=== PATIENT | male | born 1940 | race Caucasian/White ===

== ENCOUNTER 2023-11-20 06:12 | Day surgery (SDC) | payer MEDICARE, BC, SELFPAY ==
--- NOTE | 2023-10-16 11:52 | CM ---
Addendum entered by Victoria Obrien 11/13/23 11:34:
Spoke again with patient. He has obtained a rolling walker and will bring this to the hospital on the day of surgery.
Original Note:
Patient is scheduled for an elective L TKR on 11/20/23- he is a same day patient. Spoke with patient prior to surgery. Introduced role of Orthopedic Navigator. Patient reports that he lives alone in a one story home. There is one step or a ramp to
enter. He currently functions independently and occasionally uses a cane. He has no other DME. He has never had VN services. PCP is Roxanna Knight.
Discussed orthopedic program and post surgical plans. Reviewed that he will have VN services initially (medicare.gov website and ratings reviewed) and will then start outpatient PT. Patient selects [facility] (face sheet faxed to [facility] to facilitate
confirmation of benefits) for his home care needs and will go to [facility] for outpatient PT.
Patient is in agreement with plan and states that his son, Dick, will be home with him.
Patient will complete online education.
Plan: Orthopedic Navigator will remain available to assist with the care of patient and will reassess discharge needs after surgery.
[2023-10-31 10:47] VITALS: BMI 30.3
[2023-10-31 10:51] LABS: Hematocrit 38.8 % (39.0-52.0); Hemoglobin 13.1 g/dL (13.0-18.0); Mean Corp Hgb Conc. 33.8 g/dL (33.0-37.0); Mean Corpuscular Volume 88.8 fL (80.0-94.0); Mean Platelet Volume 10.1 fL (7.4-10.4); Platelet Count 306 10^3/uL (130-400); Red Blood Cell Count 4.37 10^6/uL (4.70-6.10); Red Cell Dist. Width 13.3 % (11.5-14.5); White Blood Cell Count 7.9 10^3/uL (4.8-10.8)
[2023-10-31 11:17] LABS: ALT (SGPT) 23 U/L (0-50); AST (SGOT) 23 U/L (17-59); Albumin 3.6 g/dl (3.5-5.0); Alkaline Phosphatase 82 U/L (38-126); Blood Urea Nitrogen 24 mg/dl (9-20); Calcium 9.3 mg/dl (8.4-10.2); Carbon Dioxide 28 mmol/L (22-30); Chloride 97 mmol/L (98-107); Estimated Creatinine Clearance 55 ml/min; Glucose 189 mg/dl (70-99); Potassium 3.9 mmol/L (3.5-5.1); Sodium 136 mmol/L (135-145); Total Bilirubin 0.6 mg/dl (0.2-1.3); Total Protein 5.6 g/dl (6.3-8.2); eGFR > 60.00
[2023-10-31 12:13] LABS: Glycohemoglobin (HgbA1c) 6.5 % (4.0-5.6)
[2023-10-31 15:55] VITALS: BMI 30.3
[2023-11-20] VITALS (15 sets, daily range): BP systolic 102–174; BP diastolic 52–87; BMI 30.3
[2023-11-20] MEDS: CELEBREX 200 MG PO (07:46)
[2023-11-20] MEDS: TYLENOL 650 MG PO (07:46)
[2023-11-20 08:08] LABS: Glucose - Point of Care 116 mg/dl (70-99)
[2023-11-20] MEDS: NORMOSOL-R 1000 IV (08:09)
[2023-11-20 10:02] LABS: Glucose - Point of Care 121 mg/dl (70-99)
--- NOTE | 2023-11-20 11:30 | CM ---
Patient had planned L TKR today. Met with patient and his son at bedside to review discharge plans. Patient will be returning home today with services through VN. On Saturday, 11/24, patient will start outpatient PT at [facility]. Reviewed MD follow
up in two weeks and patient is aware of need to schedule appointment.
Patient has his rolling walker here with him.
PT and VN were kept updated as to progress and discharge plans.
[2023-11-20 11:55] LABS: Glucose - Point of Care 120 mg/dl (70-99)
--- NOTE | 2023-11-20 12:24 | PTCARENOTE ---
OOB and dressed. Awaiting patient to void.
[2023-11-20] MEDS: ANCEF 5 IV (12:36)
[2023-11-20] MEDS: FLOMAX 0.400000000000000022 MG PO (13:37)
--- NOTE | 2023-11-20 14:26 | PTCARENOTE ---
Patient has been trying to void since 1300. Patient is unable to void. Patient bladder scanned for 351 ml of urine. Patient given Flomax ordered by Erika Hernandez. Patient still unable to void at 1427. Bladder scan done at 1420 and was 374 ml.
Erika Hernandez notified via tiger text. Will monitor patient.
--- NOTE | 2023-11-20 14:58 | PTCARENOTE ---
Report given to Kareen Ray RN.
[2023-11-20] MEDS: ROXICODONE 5 MG PO (15:04)
== END 2023-11-20 16:30 | disposition home health service (06) ==
LOC: SDS 06:12
PROVIDERS: ATTENDING PHYSICIAN Orthopaedic Surgery; FAMILY PHYSICIAN Family Medicine; OTHER PHYSICIAN Physician Assistant
DX: M17.12 Unilateral primary osteoarthritis, left knee (principal)
CPT/HCPCS: 27447; 36415; 73560; 80053; 82962; 83036; 85027; 87070; 93005; 97162; C1713; C1776

== ENCOUNTER 2023-11-21 03:02 | Emergency (ER) | payer MEDICARE, BC, SELFPAY ==
[2023-11-21 03:04] VITALS: BP 118/77
[2023-11-21 03:13] VITALS: BP 142/107
--- NOTE | 2023-11-21 05:01 | ED.GENMED ---
History of Present Illness
General
Chief Complaint: Male Genito-Urinary Symptoms
Source: patient
Exam Limitations: none
Time Seen by Provider: 11/21/23 04:54
Nursing documentation reviewed up to this point in time: agreed with
Travel History
Have you had any contact with someone who has COVID-19?: No
Do you have any symptoms of coronavirus? Fever > 100 degrees, chills, cough, shortness of breath, sore throat, loss of taste or smell, muscle aches, or headache?: No
History of Present Illness
History of Present Illness:
This is an 83-year-old gentleman who has history of BPH, follows annually with Dr. Grossman. He underwent left total knee replacement yesterday and postoperatively was unable to void requiring straight cath procedure prior to discharge around
4:30 PM.
Since returning home he continues to have inability to void with tremendous urge and only able to pass small amounts, dribbling amounts of urine.
No history of similar episodes in the past.
He denies back pain or flank pain, denies fever nor chills. Denies hematuria.
Past History
Past History
ED Past Medical History: HTN, Hypercholesterolemia, NIDDM and Other (diverticulitis)
Social History
Tobacco: Non-smoker
Alcohol: Occasional
Personal:
Living: alone
Employment: Retired
Phy Exam
Physical Exam
Physical Exam:
GENERAL: Alert , appears his stated age, appears mildly uncomfortable. Son is accompanying.
NECK: Supple, nontender, no meningismus, no significant adenopathy.
ENT: oral mucosa is moist. No rhinorrhea.
CARDIAC: Regular rate and rhythm. no murmur.
LUNGS: Clear breath sounds bilaterally, no acute respiratory distress, no wheezes/rales/rhonchi
ABDOMEN: Soft, nondistended, moderate tenderness over palpably moderately distended bladder, no r/g, no cvat. normoactive BS.
NEUROLOGICAL: Alert and oriented x3, no focal neuro deficits. Gait is steady.
SKIN: Warm and dry, normal color, skin intact. No rash.
MUSCULOSKELETAL: No C/C/E. peripheral pulses are full and equal b/l. Left knee surgical dressing is dry and intact.
PSYCH: Normal and appropriate interaction.
Course
Orders/Labs/Results
Orders:
Orders
11/21/23 04:55
Bladder Scan- Treatment ONCE
11/21/23 05:01
York Placement- Treatment ONCE
Reason for insertion: Acute Retention
Lidocaine 2% [Lidocaine Uro-Jet 2%] 1 syringe TOPICAL NOW STA
11/21/23 05:04
Urinalysis Reflex To Culture Urgent
Date Specimen was Collected: 11/21/23
Time Specimen was Collected: 05:05
Vital Signs
Initial and Last Documented VS:
Initial Vital Signs
Temp Pulse Resp BP Pulse Ox
98.7 F 97 17 118/77 94
11/21/23 03:04 11/21/23 03:04 11/21/23 03:04 11/21/23 03:04 11/21/23 03:04
Last Documented Vital Signs
Temp Pulse Resp BP Pulse Ox
98.2 F 93 17 142/107 96
11/21/23 03:13 11/21/23 03:13 11/21/23 03:13 11/21/23 03:13 11/21/23 03:13
MDM/Problems Addressed
Differential Diagnosis Includes:
Patient attempted to void upon arrival to the ED, remains unsuccessful only dribbling small amounts of urine.
Bladder scan shows greater than 550 cc in the bladder.
I suspect postop urinary retention likely related to anesthesia.
Will plan for York catheter insertion and as this is second catheterization we will plan to leave catheter in place and discharged home with leg bag with plan for prompt follow-up with Dr. Grossman for catheter removal.
*Critical Care Note
Total Time (30-74mins, 75-104mins- exclusive of procedures): Not Applicable
Update Note
Update Note:
York catheter inserted by nursing staff without difficulty.
Initial output over 800 cc clear yellow urine.
Will discharge with leg bag in place.
Follow-up with urologist for York catheter removal. Recommend notifying orthopedist as well.
ED Attending Note
-
Portions of this chart may have been created with voice recognition software.� Occasional wrong word or��sound alike� substitutions may have occurred due to the inherent limitations of voice recognition software.
Discharge Plan
Departure
Patient Disposition: Home (Routine Discharge)
Date of Disposition: 11/21/23
Time of Disposition: 05:34
Patient with high blood pressure during this ER visit?: No
Condition: Good
Discharge Problem:
Postoperative urinary retention
Instructions: How to Care for Your York Catheter, Male, Urinary Retention (DC)
Prescriptions:
No Action
atorvastatin 40 mg Tablet
40 mg PO HS
metoprolol succinate 50 mg Tablet Extended Release 24 Hr
50 mg PO DAILY
glipizide 10 mg Tablet
10 mg PO DAILY
finasteride 5 mg Tablet
5 mg PO DAILY
Multivitamin 50 Plus Tablet
1 tab PO DAILY
PreserVision AREDS-2 250-90-40-1 mg Capsule
1 tab PO BID
oxycodone 5 mg tablet
5 - 10 mg PO Q6H PRN (Reason: moderate-severe pain) Qty: 30 0RF
Patient Comments:
new for post op
Rx Instructions:
1 tab for moderate pain, 2 if severe.
Dx total joint
celecoxib [Celebrex] 200 mg capsule
200 mg PO DAILY Qty: 30 0RF
Patient Comments:
new med post op
Rx Instructions:
Take with food.
DO NOT take within 2 hours of Aspirin post-surgery.
ondansetron HCl 4 mg tablet
4 mg PO Q6H PRN (Reason: nausea and vomiting) Qty: 30 0RF
Patient Comments:
new for postop
Rx Instructions:
Can take 1/2 hour prior to Oxycodone if experiencing recurrent nausea.
famotidine [Pepcid] 20 mg tablet
20 mg PO HS Qty: 30 0RF
Patient Comments:
new for post op
Rx Instructions:
Take nightly while on Celebrex to prevent GI upset.
mupirocin 2 % ointment
1 applic intranasal BID Qty: 1 0RF
Patient Comments:
applied this am 11/20/23
doxycycline monohydrate 100 mg capsule
100 mg PO BID Qty: 14 0RF
Patient Comments:
new for post op
Rx Instructions:
Start night of discharge and take twice a day for 1 week post-surgery.
Take with probiotic.
acetaminophen [Acetaminophen Extra Strength] 500 mg tablet
1,000 mg PO Q6H Qty: 60 0RF
Rx Instructions:
DO NOT exceed >4000 mg daily.
docusate sodium [Colace] 100 mg capsule
100 mg PO BID Qty: 30 0RF
senna 8.6 mg capsule
17.2 mg PO BID Qty: 30 0RF
aspirin 325 mg tablet
325 mg PO DAILY Qty: 30 0RF
Rx Instructions:
Take daily x4 weeks for blood clot prevention; then resume Aspirin 81 mg daily.
Saccharomyces boulardii [Florastor] 250 mg capsule
250 mg PO BID Qty: 14 0RF
Rx Instructions:
Over the counter. Take while on antibiotic.
If unavailable, choose a different probiotic.
olmesartan-hydrochlorothiazide 40-25 mg Tablet
1 tab PO DAILY Qty: 0 0RF
Rx Instructions:
HOLD IF systolic blood pressure <130 while on Oxycodone.
Referrals:
Kenny Grossman MD [Active] - Call in 1-3 days for appt
Roxanna Knight, DO [Family Provider] -
Adonis Cano MD [Active] -
Interventions
Interventions:
*General Assessment Last Done: 11/21/23 03:13
*Neglect/Abuse Screening Last Done: 11/21/23 03:13
ED- Fall Risk Assessment Last Done: 11/21/23 03:13
*ED COVID-19 Vaccine History Last Done: 11/21/23 03:13
[2023-11-21] MEDS: LIDOCAINE URO-JET 2% 1 SYRINGE TOPICAL (05:24)
[2023-11-21 05:46] LABS: Urine Albumin Negative (Neg - Trace); Urine Bilirubin Negative (Negative); Urine Character Clear (Clear); Urine Color Yellow; Urine Glucose Negative (Negative); Urine Ketone Trace (Negative); Urine Leukocyte Negative (Negative); Urine Nitrite Negative (Negative); Urine Occult Blood Negative (Negative); Urine Specific Gravity 1.015 (<1.030); Urine Urobilinogen Negative (Neg - 1+)
[2023-11-21 06:26] VITALS: BP 142/90
== END 2023-11-21 06:28 | disposition home or self-care (01) ==
LOC: EMR 03:02
PROVIDERS: EMERGENCY PHYSICIAN Emergency Medicine; FAMILY PHYSICIAN Family Medicine
DX: N40.1 Benign prostatic hyperplasia with lower urinary tract symptoms (principal); I10 Essential (primary) hypertension; E78.00 Pure hypercholesterolemia, unspecified; E11.9 Type 2 diabetes mellitus without complications
CPT/HCPCS: 99282; 81003

== ENCOUNTER → 2024-04-07 08:08 | Outpatient (REF) | payer MEDICARE, BC, SELFPAY ==
[2024-04-07 10:02] LABS: Blood Urea Nitrogen 22 mg/dl (9-20); Calcium 9.7 mg/dl (8.4-10.2); Carbon Dioxide 29 mmol/L (22-30); Chloride 103 mmol/L (98-107); Glucose 107 mg/dl (70-99); Potassium 4.1 mmol/L (3.5-5.1); Sodium 139 mmol/L (135-145); eGFR > 60.00
[2024-04-07 10:17] LABS: Glycohemoglobin (HgbA1c) 6.4 % (4.0-5.6)
== END ==
LOC: HWLAB 08:08
PROVIDERS: ATTENDING PHYSICIAN Family Medicine
DX: E11.9 Type 2 diabetes mellitus without complications (principal); I10 Essential (primary) hypertension
CPT/HCPCS: 36415; 80048; 83036

== ENCOUNTER 2024-04-25 10:42 | Emergency (ER) | payer MEDICARE, BC, SELFPAY ==
[2024-04-25 10:43] VITALS: BP 160/72
[2024-04-25 11:18] VITALS: BP 170/75
[2024-04-25 11:32] VITALS: BMI 30.5
--- NOTE | 2024-04-25 11:39 | ED.GENMED ---
History of Present Illness
General
Chief Complaint: Chest Pain
Source: patient
Exam Limitations: none
Time Seen by Provider: 04/25/24 11:11
Nursing documentation reviewed up to this point in time: agreed with
History of Present Illness
History of Present Illness:
Patient is an 83-year-old male who presents to the ER for evaluation. Patient has a history of hypertension hyperlipidemia reports yesterday in the morning while driving his car he had an episode of left-sided chest pain which lasted for 1 second
and resolved. He had no associated radiation nausea vomiting fever chills shortness of breath or diaphoresis. Today this morning he noticed he had pain in his left arm only with bending it. It resolved when he straightened it out. He denies
injury but does report he lifted a heavy box yesterday. He is here just to make sure this is not a cardiac event. He has no cardiac history. No symptoms now. non smoker.
Past History
Past History
ED Past Medical History: HTN, Hypercholesterolemia, NIDDM and Other (diverticulitis)
Social History
Tobacco: Non-smoker
Alcohol: Occasional
Personal:
Living: alone
Employment: Retired
Review of Systems
Review of Systems
Allergies reviewed?: Yes
All Other Systems: ROS reviewed and negative except as documented in HPI and ROS
Constitutional: Reports no symptoms
Respiratory: Reports no symptoms; Denies trouble breathing
Cardiac: Reports chest pain (Had a 1 second episode of left-sided chest pain yesterday.)
ABD/GI: Reports no symptoms
Musculoskeletal: Reports no symptoms
Skin: Reports no symptoms
Neurological: Reports no symptoms
Psychiatric: Reports no symptoms
Phy Exam
General Physical Exam
General Presentation: no apparent distress
General age: appears stated age
General Skin: warm and dry
General Habitus: normal
General Mental: alert
General Hydration: appears well hydrated
Cardiovascular Exam
Cardiovascular Exam: regular rate/rhythm, no murmur and normal peripheral pulses
Pulmonary Exam
Pulmonary Exam: lungs clear and no respiratory distress
Neurological Exam
Neurological Exam: alert and oriented x3
Musculoskeletal Exam
Musculoskeletal Exam: full ROM and other (Normal inspection to left arm full flexion extension no tenderness/pain on exam )
Skin Exam
Skin Exam: normal color and warm/dry
Psychiatric Exam
Psychiatric Exam: normal mood/affect
Scores
Heart Score for Chest Pain Patients
STEMI patient?: Not applicable
Course
Orders/Labs/Results
Orders:
Orders
04/25/24 10:48
Electrocardiogram (*1) Urgent
Reason for Study: Chest Pain
EKG- Treatment ONCE
04/25/24 11:40
Complete Blood Count/With Diff Urgent
Comprehensive Metabolic Panel Urgent
Troponin I Urgent
Abnormal Lab Results
04/25/24
11:40
RBC 4.53 L 10^6/uL
(4.70-6.10)
Hct 38.4 L %
(39.0-52.0)
Absolute Monos (auto) 0.9 H 10^3/uL
(0.1-0.6)
Lymphocytes % 16.6 L %
(20.5-51.1)
Monocytes % 10.3 H %
(1.7-9.3)
Glucose 106 H mg/dl
(70-99)
04/25/24 11:40
04/25/24 11:40
Vital Signs
Initial and Last Documented VS:
Initial Vital Signs
Temp Pulse Resp BP Pulse Ox
98.0 F 58 20 160/72 98
04/25/24 10:43 04/25/24 10:43 04/25/24 10:43 04/25/24 10:43 04/25/24 10:43
Last Documented Vital Signs
Temp Pulse Resp BP Pulse Ox
98.0 F 51 15 144/55 98
04/25/24 10:43 04/25/24 12:00 04/25/24 12:00 04/25/24 12:00 04/25/24 12:00
MDM/Problems Addressed
MDM/Problems Addressed:
Patient is document is an 83-year-old male who an episode of 1 second left-sided chest pain yesterday with no other associated symptoms and today noticed his arm was uncomfortable with movement only. He did lift something yesterday and was
concerned that this arm pain was muscular. He has no cardiac history. Had no symptoms of chest pain today. Patient was monitored here and though he had no chest pain today his arm pain actually went away while he was here. He is no acute
distress and looks well he has no cardiac history he does have a history of hyperlipidemia and hypertension. His cardiac troponin is normal .he is in no acute distress. the 1 second episode of chest pain that he had yesterday is not consistent
with cardiac chest pain, again he had no other associated symptoms. The arm pain he had today when he first came in was discomfort with bending however that has since resolved will still DC on chest pain hotline for reevaluation
*Pulse Oximetry
Patient hypoxic: no
*EKG
Interpreted by ED Provider?: Yes
Interpretation: abnormal
Comparison EKG: no changes
Heart Rate: 56
Rate: bradycardiac
Rhythm: sinus
Ischemia: non-specific ST changes
*Critical Care Note
Total Time (30-74mins, 75-104mins- exclusive of procedures): Not Applicable
ED Attending Note
-
Portions of this chart may have been created with voice recognition software.� Occasional wrong word or��sound alike� substitutions may have occurred due to the inherent limitations of voice recognition software.
Discharge Plan
Departure
Patient Disposition: Home (Routine Discharge)
Date of Disposition: 04/25/24
Time of Disposition: 14:12
Patient with high blood pressure during this ER visit?: Yes
Covid-19: Not Applicable
Discharge Problem:
Chest pain
Instructions: Chest Pain DCA Follow Up
Prescriptions:
No Action
atorvastatin 40 mg Tablet
40 mg PO HS
metoprolol succinate 50 mg Tablet Extended Release 24 Hr
50 mg PO DAILY
glipizide 10 mg Tablet
10 mg PO DAILY
finasteride 5 mg Tablet
5 mg PO DAILY
Multivitamin 50 Plus Tablet
1 tab PO DAILY
PreserVision AREDS-2 250-90-40-1 mg Capsule
1 tab PO BID
oxycodone 5 mg tablet
5 - 10 mg PO Q6H PRN (Reason: moderate-severe pain) Qty: 30 0RF
Patient Comments:
new for post op
Rx Instructions:
1 tab for moderate pain, 2 if severe.
Dx total joint
celecoxib [Celebrex] 200 mg capsule
200 mg PO DAILY Qty: 30 0RF
Patient Comments:
new med post op
Rx Instructions:
Take with food.
DO NOT take within 2 hours of Aspirin post-surgery.
ondansetron HCl 4 mg tablet
4 mg PO Q6H PRN (Reason: nausea and vomiting) Qty: 30 0RF
Patient Comments:
new for postop
Rx Instructions:
Can take 1/2 hour prior to Oxycodone if experiencing recurrent nausea.
famotidine [Pepcid] 20 mg tablet
20 mg PO HS Qty: 30 0RF
Patient Comments:
new for post op
Rx Instructions:
Take nightly while on Celebrex to prevent GI upset.
mupirocin 2 % ointment
1 applic intranasal BID Qty: 1 0RF
Patient Comments:
applied this am 11/20/23
doxycycline monohydrate 100 mg capsule
100 mg PO BID Qty: 14 0RF
Patient Comments:
new for post op
Rx Instructions:
Start night of discharge and take twice a day for 1 week post-surgery.
Take with probiotic.
acetaminophen [Acetaminophen Extra Strength] 500 mg tablet
1,000 mg PO Q6H Qty: 60 0RF
Rx Instructions:
DO NOT exceed >4000 mg daily.
docusate sodium [Colace] 100 mg capsule
100 mg PO BID Qty: 30 0RF
senna 8.6 mg capsule
17.2 mg PO BID Qty: 30 0RF
aspirin 325 mg tablet
325 mg PO DAILY Qty: 30 0RF
Rx Instructions:
Take daily x4 weeks for blood clot prevention; then resume Aspirin 81 mg daily.
Saccharomyces boulardii [Florastor] 250 mg capsule
250 mg PO BID Qty: 14 0RF
Rx Instructions:
Over the counter. Take while on antibiotic.
If unavailable, choose a different probiotic.
olmesartan-hydrochlorothiazide 40-25 mg Tablet
1 tab PO DAILY Qty: 0 0RF
Rx Instructions:
HOLD IF systolic blood pressure <130 while on Oxycodone.
Referrals:
Roc Dawson MD [Active] -
Roxanna Knight DO [Family Provider] -
Activity Restrictions/Additional Instructions:
Follow-up as discussed with advance agent. You were placed on the chest pain hotline which means you should receive a call back in the next several days; if you do not please reach out to the office to make an appointment. Return if any worsening
of symptoms.
Interventions
Interventions:
*Risk Screen - Suicide Last Done: 04/25/24 10:43
*General Assessment Last Done: 04/25/24 10:43
*Neglect/Abuse Screening Last Done: 04/25/24 10:43
ED- Fall Risk Assessment Last Done: 04/25/24 11:32
*ED COVID-19 Vaccine History Last Done: 04/25/24 11:32
ED- Cardiac Assessment Last Done: 04/25/24 11:32
Discharge Date and Time
Print Language: OCCITAN
[2024-04-25 11:53] LABS: % Basophils 1.1 % (0-2); % Immature Granulocytes 0.3 % (0-0.5); % Lymphocytes 16.6 % (20.5-51.1); % Monocytes 10.3 % (1.7-9.3); % Neutrophils 67.7 % (42.2-75.2); Absolute Basophils 0.1 10^3/uL (0-0.2); Absolute Eosinophils 0.4 10^3/uL (0-0.7); Absolute Lymphocytes 1.5 10^3/uL (1.2-3.4); Absolute Monocytes 0.9 10^3/uL (0.1-0.6); Absolute Neutrophils 5.9 10^3/uL (1.4-6.5); Hematocrit 38.4 % (39.0-52.0); Mean Corp Hgb Conc. 33.9 g/dL (33.0-37.0); Mean Corpuscular Hgb 28.7 pg (27.0-31.0); Mean Corpuscular Volume 84.8 fL (80.0-94.0); Mean Platelet Volume 9.5 fL (7.4-10.4); Nucleated Red Blood Cells % 0 % (-); Platelet Count 283 10^3/uL (130-400); Red Blood Cell Count 4.53 10^6/uL (4.70-6.10); Red Cell Dist. Width 13.6 % (11.5-14.5); White Blood Cell Count 8.7 10^3/uL (4.8-10.8)
[2024-04-25 12:00] VITALS: BP 144/55
[2024-04-25 12:13] LABS: ALT (SGPT) 25 U/L (0-50); AST (SGOT) 26 U/L (17-59); Albumin 4.1 g/dl (3.5-5.0); Alkaline Phosphatase 91 U/L (38-126); Blood Urea Nitrogen 19 mg/dl (9-20); Calcium 9.5 mg/dl (8.4-10.2); Carbon Dioxide 27 mmol/L (22-30); Chloride 102 mmol/L (98-107); Estimated Creatinine Clearance 68 ml/min; Glucose 106 mg/dl (70-99); Potassium 4.3 mmol/L (3.5-5.1); Sodium 137 mmol/L (135-145); Total Bilirubin 0.5 mg/dl (0.2-1.3); Total Protein 6.3 g/dl (6.3-8.2); eGFR > 60.00
[2024-04-25 12:28] LABS: Troponin I < 0.012 ng/ml
[2024-04-25 12:31] VITALS: BP 146/123
[2024-04-25 13:00] VITALS: BP 147/58
[2024-04-25 14:00] VITALS: BP 158/68
== END 2024-04-25 14:33 | disposition home or self-care (01) ==
LOC: EMR 10:42
PROVIDERS: Nurse Practitioner; EMERGENCY PHYSICIAN Emergency Medicine; FAMILY PHYSICIAN Family Medicine
DX: R07.89 Other chest pain (principal); M79.602 Pain in left arm; X50.0XXA Overexertion from strenuous movement or load, initial encounter; I10 Essential (primary) hypertension; E78.00 Pure hypercholesterolemia, unspecified; E11.9 Type 2 diabetes mellitus without complications; K57.92 Diverticulitis of intestine, part unspecified, without perforation or abscess without bleeding; N40.0 Benign prostatic hyperplasia without lower urinary tract symptoms; M19.90 Unspecified osteoarthritis, unspecified site; Z96.652 Presence of left artificial knee joint; Z85.828 Personal history of other malignant neoplasm of skin; Z79.84 Long term (current) use of oral hypoglycemic drugs; Z79.82 Long term (current) use of aspirin; Z88.0 Allergy status to penicillin; Z88.8 Allergy status to other drugs, medicaments and biological substances
CPT/HCPCS: 99283; 80053; 84484; 85025; 93005

== ENCOUNTER → 2024-07-09 09:55 | Outpatient (REF) | payer MEDICARE, BC, SELFPAY ==
[2024-07-09 12:48] LABS: PSA, Total - Screen 2.13 ng/ml (0.0-4.0)
== END ==
LOC: HWLAB 09:55
PROVIDERS: ATTENDING PHYSICIAN Specialist; FAMILY PHYSICIAN Family Medicine
DX: Z12.5 Encounter for screening for malignant neoplasm of prostate (principal)
CPT/HCPCS: 36415; G0103

== ENCOUNTER → 2024-10-12 07:46 | Outpatient (REF) | payer MEDICARE, BC, SELFPAY ==
[2024-10-12 09:21] LABS: % Basophils 1.4 % (0-2); % Eosinophils 7.9 % (0-6); % Immature Granulocytes 0.2 % (0-0.5); % Lymphocytes 21.2 % (20.5-51.1); % Monocytes 9.3 % (1.7-9.3); Absolute Basophils 0.1 10^3/uL (0-0.2); Absolute Eosinophils 0.7 10^3/uL (0-0.7); Absolute Lymphocytes 1.9 10^3/uL (1.2-3.4); Absolute Monocytes 0.8 10^3/uL (0.1-0.6); Absolute Neutrophils 5.4 10^3/uL (1.4-6.5); Hematocrit 43.3 % (39.0-52.0); Hemoglobin 13.9 g/dL (13.0-18.0); Mean Corp Hgb Conc. 32.1 g/dL (33.0-37.0); Mean Corpuscular Hgb 28.7 pg (27.0-31.0); Mean Corpuscular Volume 89.3 fL (80.0-94.0); Mean Platelet Volume 9.1 fL (7.4-10.4); Nucleated Red Blood Cells % 0 % (-); Platelet Count 273 10^3/uL (130-400); Red Blood Cell Count 4.85 10^6/uL (4.70-6.10); Red Cell Dist. Width 13.4 % (11.5-14.5)
[2024-10-12 09:41] LABS: ALT (SGPT) 29 U/L (0-50); AST (SGOT) 25 U/L (17-59); Alkaline Phosphatase 91 U/L (38-126); Blood Urea Nitrogen 24 mg/dl (9-20); Calcium 9.4 mg/dl (8.4-10.2); Carbon Dioxide 31 mmol/L (22-30); Chloride 101 mmol/L (98-107); Glucose 125 mg/dl (70-99); HDL Cholesterol 38 mg/dl; LDL Cholesterol, Calculated 85 mg/dl; Potassium 4.6 mmol/L (3.5-5.1); Sodium 139 mmol/L (135-145); Total Bilirubin 0.6 mg/dl (0.2-1.3); Total Cholesterol 164 mg/dl (50-199); Total Protein 6.2 g/dl (6.3-8.2); Triglyceride 207 mg/dl (10-149); Very Low Density Lipoprotein 41 mg/dl (0-30); eGFR > 60.00
== END ==
LOC: HWLAB 07:46
PROVIDERS: ATTENDING PHYSICIAN Family Medicine
DX: E11.9 Type 2 diabetes mellitus without complications (principal); E78.5 Hyperlipidemia, unspecified; Z00.00 Encounter for general adult medical examination without abnormal findings
CPT/HCPCS: 36415; 80053; 80061; 83036; 85025

== ENCOUNTER → 2024-11-11 06:55 | Outpatient (REF) | payer MEDICARE, BC, SELFPAY ==
[2024-11-13 11:17] LABS: PSA Total 1.8 ng/mL (0.0-4.0)
== END ==
LOC: HWLAB 06:55
PROVIDERS: ATTENDING PHYSICIAN Specialist; FAMILY PHYSICIAN Family Medicine
DX: R97.20 Elevated prostate specific antigen [PSA] (principal)
CPT/HCPCS: 36415; 84153; 84154

== ENCOUNTER → 2025-02-12 08:01 | Outpatient (REF) | payer MEDICARE, BC, SELFPAY ==
[2025-02-12 09:55] LABS: Blood Urea Nitrogen 23 mg/dl (9-20); Calcium 9.3 mg/dl (8.4-10.2); Carbon Dioxide 28 mmol/L (22-30); Chloride 108 mmol/L (98-107); Glucose 122 mg/dl (70-99); Potassium 4.2 mmol/L (3.5-5.1); Sodium 140 mmol/L (135-145); eGFR > 60.00
[2025-02-12 12:04] LABS: Glycohemoglobin (HgbA1c) 6.9 % (4.0-5.6)
== END ==
LOC: HWLAB 08:01
PROVIDERS: ATTENDING PHYSICIAN Family Medicine
DX: E11.9 Type 2 diabetes mellitus without complications (principal)
CPT/HCPCS: 36415; 80048; 83036

== ENCOUNTER → 2025-03-08 13:40 | Outpatient (REF) | payer MEDICARE, BC, SELFPAY ==
[2025-03-11 04:42] LABS: PSA Total 1.7 ng/mL (0.0-4.0)
== END ==
LOC: HWLAB 13:40
PROVIDERS: ATTENDING PHYSICIAN Specialist; FAMILY PHYSICIAN Family Medicine
DX: R97.20 Elevated prostate specific antigen [PSA] (principal)
CPT/HCPCS: 36415; 84153; 84154

== ENCOUNTER → 2025-07-12 10:37 | Outpatient (REF) | payer MEDICARE, BC, SELFPAY | LOC: HWLAB 10:37 | PROVIDERS: ATTENDING PHYSICIAN Specialist; FAMILY PHYSICIAN Family Medicine | DX: R97.20 Elevated prostate specific antigen [PSA] (principal) | CPT/HCPCS: 36415; 84153; 84154 ==

== ENCOUNTER → 2025-08-18 06:59 | Outpatient (REF) | payer MEDICARE, BC, SELFPAY ==
[2025-08-18 08:00] LABS: Microalbumin, Random Urine 4.9 mg/dl (0.6-1.7)
[2025-08-18 08:13] LABS: Blood Urea Nitrogen 23 mg/dl (9-20); Calcium 9.4 mg/dl (8.4-10.2); Carbon Dioxide 30 mmol/L (22-30); Chloride 104 mmol/L (98-107); Glucose 119 mg/dl (70-99); Potassium 4.2 mmol/L (3.5-5.1); Sodium 138 mmol/L (135-145); eGFR > 60.00
[2025-08-18 09:16] LABS: Glycohemoglobin (HgbA1c) 7.3 % (4.0-5.9)
== END ==
LOC: REG 06:59
PROVIDERS: ATTENDING PHYSICIAN Family Medicine
DX: E11.9 Type 2 diabetes mellitus without complications (principal)
CPT/HCPCS: 36415; 80048; 82043; 82570; 83036